=== PATIENT | male | born 1955 | race Two or more races ===

== ENCOUNTER 2025-07-04 03:36 | Inpatient (IN) | payer MEDICARE, MEDICAID, SELFPAY ==
[2025-07-04] VITALS (9 sets, daily range): BP systolic 97–133; BP diastolic 63–84; PULSE 52–64; RESP 15–95; TEMP 36.1–37.1; O2SAT 91–99; BMI 33.1
--- NOTE | 2025-07-04 03:58 | XR_ITS ---
Examination: CT abdomen and pelvis without contrast. Coronal 3-D reconstructions. Sagittal 2-D reconstructions. Date and time of exam:July 04, 2025, 0438 hours INDICATIONS: Abdominal pain and vomiting onset today. CTDI: vol (mGy): 8.09. DLP: (mGycm): 516. Technique: Axial images of the abdomen have been obtained, 3 mm slice thickness Intravenous contrast material has not been administered. Low dose protocols were performed. One or more of the following dose reduction techniques were used; automated exposure control, adjustment of the mA and/or KV according to patient size, use of iterative reconstruction technique. Findings: No focal liver or splenic lesions No gallstones No pancreatic or adrenal mass. No renal or ureteral calculi, no hydronephrosis No pericecal inflammatory change Multiple fluid distended small bowel loops ileal level No hernia defect Trace free fluid in the pelvis Bladder intact. No significant prostatomegaly Chronic compression L4 IMPRESSION: Small bowel obstruction, consider a Gastrografin small bowel series follow-up
--- NOTE | 2025-07-04 03:59 | PD.EDRME ---
Rapid Medical Screening Exam RME Arrival date/time: 07/04/25 03:36 This is a case of 69-year-old male who came into the emergency room due to generalized abdominal pain associated with nausea vomiting worsening of the symptoms this patient decided to sought consult here in the emergency room Chief Complaint: Abdominal Pain Time Seen by Provider: 07/04/25 03:53 Vital signs: Vital Signs Temperature 98.7 F 07/04/25 03:51 Pulse Rate 64 07/04/25 03:51 Respiratory Rate 16 07/04/25 03:51 Blood Pressure 116/73 07/04/25 03:51 Pulse Oximetry (%) 96 07/04/25 03:51 Oxygen Delivery Method Room Air 07/04/25 03:51
[2025-07-04 04:42] LABS: Collection Type, Urine Clean Catch
[2025-07-04 04:47] LABS: Bacteria,Urine Rare; Bilirubin,Urine Negative (Negative); Blood,Urine Negative (Negative); Clarity,Urine Clear (Clear/Hazy); Color,Urine Yellow (Lt Yel-Yel); Glucose, Urine Negative (Negative); Ketones,Urine Negative (Negative); Leukocyte Esterase,Urine Negative (Negative); Nitrite,Urine Negative (Negative); PH,Urine 6.5 (5.0-7.0); Protein,Urine 1+ (Neg - Trace); RBC,Urine 4 /hpf (0-3); Specific Gravity,Urine 1.034 (1.001-1.035); Squamous Epithelial Cell,Urine 1 /hpf (0-5); Urobilinogen,Urine 2.0 mg/dL (0.0-1.0); WBC,Urine 3 /hpf (0-5)
[2025-07-04 05:06] LABS: Basophils # (Auto) 0.1 Thou/mm3 (0.0-0.2); Basophils % (Auto) 0 % (0-2.5); Eosinophils # (Auto) 0.0 Thou/mm3 (0.0-0.5); Eosinophils % (Auto) 0 % (0-10); Hematocrit 40.2 % (41.0-53.0); Hemoglobin 14.4 g/dL (13.5-16.0); Immature Granulocytes Auto 0.04 Thou/mm3 (0.00-0.00); Lymphocytes # (Auto) 1.2 Thou/mm3 (1.0-4.8); Lymphocytes % (Auto) 11 % (10-50); Mean Corpuscular HGB Conc 35.8 g/dl (31.0-37.0); Mean Corpuscular Hemoglobin 39.5 pg (25.0-35.0); Mean Corpuscular Volume 110 fL (80-100); Monocytes # (Auto) 0.4 Thou/mm3 (0.0-0.8); Monocytes % (Auto) 4 % (0-12); Neutrophils # (Auto) 9.4 Thou/mm3 (1.8-7.7); Neutrophils % (Auto) 85 % (37-80); Nucleated Red Blood Cell # 0.00 Thou/mm3 (0.00-0.00); Nucleated Red Blood Cell % 0 /100 WBC (0); Platelet Count 268 Thou/mm3 (140-440); RDW Standard Deviation 53.1 fL (35.1-43.9); Red Blood Count 3.65 Miln/mm3 (4.50-5.90); White Blood Count 11.2 Thou/mm3 (3.8-10.6)
[2025-07-04 05:23] LABS: Path Review Blood Smear Sent to Pathologist
[2025-07-04 05:29] LABS: Alanine Aminotransferase 14 U/L (10-49); Albumin, Serum 4.6 gm/dL (3.4-4.8); Albumin/Globulin Ratio 1.7 (1.2-2.2); Alkaline Phosphatase 64 U/L (46-116); Anion Gap 10 (7-16); Aspartate Amino Transferase 25 U/L (0-34); BUN/Creatinine Ratio 19 Ratio (12-20); Bilirubin,Total 1.9 mg/dL (0.3-1.2); Blood Urea Nitrogen 13 mg/dL (9-23); Calcium 9.9 mg/dL (8.3-10.6); Calcium (Corrected) 9.9 mg/dL (8.5-10.1); Carbon Dioxide 26.8 mMol/L (20.0-31.0); Chloride 102 mMol/L (98-107); Creatinine (Component) 0.7 mg/dL (0.6-1.3); Estimated Creatinine Clearance 97.2 mL/min (>60); Globulin 2.7 gm/dL (2.3-3.5); Glucose 130 mg/dL (74-106); Lipase 32 U/L (12-53); Osmolality,Calculated 279 (275-295); Potassium 4.5 mMol/L (3.4-5.1); Sodium 139 mMol/L (136-145); Total Protein 7.3 gm/dL (5.7-8.2); eGFR > 60 See Note
--- NOTE | 2025-07-04 05:45 | PRELIM_ITS ---
CT scan of the abdomen and pelvis without intravenous contrast (axial sections with sagittal and coronal reformats) July 04, 2025 at 0438 hours Clinical History: Abdominal pain. Comparison: No prior study is available for comparison. Findings: The lung bases are clear. Subcentimeter hepatic cysts. Gallbladder, spleen, pancreas, adrenal glands and kidneys are unremarkable. The appendix is normal, best seen on (image 159). The urinary bladder is normal. Small ascites. Fluid levels are present and mildly distended jejunum and ileum. Mild mesenteric edema. No bowel caliber transition point is identified, although the proximal jejunum and distal ileum are relatively decompressed. No free intraperitoneal air. The abdominal wall is unremarkable. Chronic L4 compression fracture. No acute osseous process. Impression: Suspicious for partial mid ileal obstruction. Report Electronically Signed By: Chi Avina 07/04/2025 5:44:53 AM [EST]
--- NOTE | 2025-07-04 07:36 | PD.EDABDPN ---
ED Abdominal Pain RME/HPI General Chief Complaint: Abdominal Pain Stated complaint: ABD PAIN AND VOMITING X 1DAY Time seen by provider: 07/04/25 03:53 Arrival date/time: 07/04/25 03:36 Limitations: no limitations RME / HPI RME / HPI narrative: 07/04/25 03:36 This is a case of 69-year-old male who came into the emergency room due to generalized abdominal pain associated with nausea vomiting worsening of the symptoms this patient decided to sought consult here in the emergency room DR. JASMYNE ALMANZA ED EVALUATION 69 year old male presents to the ED for evaluation of abdominal pain beginning at 8PM last night and persistent through the night. Described as feeling distended that is worse to upper abdomen, rating as moderate. Accompanied by nausea and vomiting. Patient states he has history of gastritis with intermittent episodes of similar pain; in the past was prescribed Omeprazole with improvement. Denies taking any medications at home. No other associated symptoms reported. Denies fevers, chills, chest pain, shortness of breath, or vomiting. Last bowel movement was at 6PM yesterday and normal for him. Related Data Allergies Allergy/AdvReac Type Severity Reaction Status Date / Time No Known Allergies Allergy Verified 06/23/18 19:55 Review of Systems Review of Systems Systems Reviewed: All systems reviewed, normal except as documented Past Medical History Past Medical History CARDIAC: Negative Cardiac Disorders GENITOURINARY: Negative Renal Disease ENDOCRINE: Negative Endocrine Disorders OTHER HISTORY: Negative Blood Transfusions Family History FAMILY HISTORY: Negative Family Respiratory Disorders, Family Cardiac Disorders or Family Gastrointestinal Problems Social History SMOKING STATUS: Never smoker SECOND HAND EXPOSURE: No SUBSTANCE USE: does not use ED Exam General Limitations: Present no limitations General appearance: Present alert and in no apparent distress Head Head exam: Present atraumatic and normocephalic Eye Eye exam: Present normal appearance, PERRL and EOMI ENT ENT exam: Present normal exam, normal oropharynx and mucous membranes moist Neck Neck exam: Present normal inspection, full ROM and trachea midline Chest Chest inspection: Present normal inspection and symmetric chest wall rise Respiratory Respiratory exam: Present normal lung sounds bilaterally Cardiovascular Cardiovascular exam: Present regular rate, normal rhythm and normal heart sounds Abdominal Exam Abdominal exam: Present soft, tenderness (mild to moderate generalized tenderness to palpation, without rebound or guarding) and normal bowel sounds Extremities Exam Extremities exam: Present normal inspection and full ROM Back Exam Back exam: Present normal inspection and full ROM Neurological Exam Neurological exam: Present alert, oriented X3 and CN II-XII intact Psychiatric Psychiatric exam: Present normal affect and normal mood Skin Skin exam: Present warm, dry, intact and normal color Course Quality Measures none Orders Category Date Time Status CT abdomen pelvis wo con Stat Exams 07/04/25 03:58 Completed CBC Stat Lab 07/04/25 04:50 Completed Comprehensive Metabolic Panel Stat Lab 07/04/25 04:50 Completed Lipase Stat Lab 07/04/25 04:50 [address] Review Blood Smear Stat Lab 07/04/25 04:50 Completed Urinalysis Stat Lab 07/04/25 04:18 Completed Vital Signs Vital signs: Vital Signs Temperature 98.7 F 07/04/25 03:51 Pulse Rate 64 07/04/25 03:51 Respiratory Rate 16 07/04/25 03:51 Blood Pressure 116/73 07/04/25 03:51 Pulse Oximetry (%) 96 07/04/25 03:51 Oxygen Delivery Method Room Air 07/04/25 03:51 Pulse ox is 96% on room air which is adequate. Abdominal Pain MDM MDM Narrative MDM Narrative:: Teresa Colvin am scribing for and in the presence of Dr. Phillips. 11:44 69 year old male presents to the ED for evaluation of abdominal pain beginning at 8PM last night and persistent through the night. Described as feeling distended that is worse to upper abdomen, rating as moderate. Accompanied by nausea and vomiting. Patient states he has history of gastritis with intermittent episodes of similar pain; in the past was prescribed Omeprazole with improvement. Denies taking any medications at home. No other associated symptoms reported. Denies fevers, chills, chest pain, shortness of breath, or vomiting. Last bowel movement was at 6PM yesterday and normal for him. Patient's vital signs were stable and normal throughout. His exam was unremarkable for moderate abdominal tenderness to palpation without rebound or guarding. Patient does not have a surgical abdomen. The remainder of his exam is normal. Patient's blood work is remarkable for mild leukocytosis, but otherwise unremarkable. His CT showed a small bowel obstruction. I called Dr. Mckeon (general surgeon on-call for the emergency department) and discussed the case with him in detail. I then called the resident for Dr. Bradshaw I discussed the case with him in detail. Patient to be admitted Patient data External records reviewed:: [facility] previous records (I reviewed admission from 06/23/2018 through 06/27/2018) Clinical information provided by:: patient Social determinants that could affect healthcare access:: none Patient has the following chronic illnesses:: Gastritis How is presenting disease/condition affected by chronic disease/condition?: exacerbated by Evaluation data The following diagnostics were reviewed and interpreted by me:: lab results and radiology exam(s) Lab and/or radiology exams considered but not ordered:: None Interpretation Summary: Ordering Physician: Duke Goetz Date of Service: 07/04/25 Procedure(s): CT abdomen pelvis wo con Accession Number(s): [id number] cc: Harshil Sutton MD; NO PRIMARY/FAMILY,PHYSICIAN; Duke Goetz~ Examination: CT abdomen and pelvis without contrast. Coronal 3-D reconstructions. Sagittal 2-D reconstructions. Date and time of exam:July 04, 2025, 0438 hours INDICATIONS: Abdominal pain and vomiting onset today. CTDI: vol (mGy): 8.09. DLP: (mGycm): 516. Technique: Axial images of the abdomen have been obtained, 3 mm slice thickness Intravenous contrast material has not been administered. Low dose protocols were performed. One or more of the following dose reduction techniques were used; automated exposure control, adjustment of the mA and/or KV according to patient size, use of iterative reconstruction technique. Findings: No focal liver or splenic lesions No gallstones No pancreatic or adrenal mass. No renal or ureteral calculi, no hydronephrosis No pericecal inflammatory change Multiple fluid distended small bowel loops ileal level No hernia defect Trace free fluid in the pelvis Bladder intact. No significant prostatomegaly Chronic compression L4 IMPRESSION: Small bowel obstruction, consider a Gastrografin small bowel series follow-up Dictated By: Harshil Sutton MD Signed By: <Electronically signed by Harshil Sutton MD in OV> 07/04/25 0655 Medications / Prescriptions Medications or Prescriptions considered but not ordered:: None Medication administrations:: Medication Administration History Acetaminophen (Acetaminophen 325 Mg Tablet) 650 mg PO Q6H PRN PRN Reason: Fever >101.5 Stop: 08/03/25 10:11 Enoxaparin Sodium (Enoxaparin Sod Inj 40 Mg/0.4 Ml Syringe) 40 mg SC QDAY [facility] Stop: 07/19/25 08:59 Lactated Ringer's (Lactated Ringers) 1,000 mls @ 75 mls/hr IV .[id number] [facility] Stop: 08/03/25 10:14 Last Admin: 07/04/25 10:41 Dose: 75 mls/hr Documented By: VL Pantoprazole Sodium (Pantoprazole Inj 40 Mg Vial) 40 mg IVP QDAY [facility] Stop: 08/03/25 10:14 Last Admin: 07/04/25 10:41 Dose: 40 mg Documented By: VL See above Consultations Consultation(s) initiated? (list below): Yes Consultation #1 (Physician, Specialty, Details): I spoke with general surgeon Dr. Mckeon. Advised getting a small bowel series and if positive to have hospitalist consult with him. Time: 07:43 Consultation #2 (Physician, Specialty, Details): I spoke with resident working with Dr. Bradshaw. Discussed patients PMHx, HPI, ED course, exam findings, labs, and radiology results. The hospitalist agree to accept the patient for admission. Time: 07:44 Diagnosis Differential diagnosis abdominal pain: abdominal pain, calculus of kidney, constipation, pancreatitis and small bowel obstruction Most likely diagnosis given after review of the tests above:: Small bowel obstruction Admission Indicated Admission indicated?: indicated Admission Request Was there a request for admission?: Yes Admission Attestation Admission request attestation: Discussed case with [] from Hospitalist service regarding admission. Discussed patients ED course, exam findings, labs, and radiology results. The Hospitalist [agrees,declines] to accept the patient for admission. Disposition Plan Disposition Plan: Admit Discharge Plan Plan Patient Disposition: Admit Acute Care w/in Hospital Problem List Clinical Impression: Small bowel obstruction
--- NOTE | 2025-07-04 10:12 | XR_ITS ---
Examination: Small bowel series AP supine abdomen 5 views Date and time: July 04, 2025, 1442 hours INDICATIONS: CT abdomen and pelvis study today small bowel obstruction pattern, abdominal pain and distention with vomiting today TECHNIQUE AND FINDINGS: Patient received 120 cc Gastrografin AP supine abdomen films obtained, immediate, 1 minute, 30 minutes, 1 hour and 2 hours Mildly distended contrast opacified small bowel loops noted, however contrast appears in the right colon on the two-hour film IMPRESSION: Recommend one additional follow-up abdomen film at 8:00 PM to confirm no small bowel obstruction
[2025-07-04] MEDS: RINGERS LACTATED 1000 ML 1,000 ML 75 ML IV (10:41)
--- NOTE | 2025-07-04 10:58 | PC.CC ---
Patient is a 69 year-old male who presents to the hospital for SBO. SENIOR SOFTWARE DEVELOPMENT MANAGERKarime made [id number] contact with patient introduced self, role, and reason for visit. Patient appeared alert and oriented to self, location, and situation. SENIOR SOFTWARE DEVELOPMENT MANAGER, discussed limits of confidentiality. At bedside was patient's , Kylie Candelario whom patient provided verbal consent to remain in the room during assessment. Patient made appropriate eye contact and engaged in initial assessment. Patient confirmed information on demographics. Per patient, in the event that he is unable to make his own medical decision his medical decision maker is his daughter, Katie Buenrostro . At home patient is able to ambulate independently and complete his own ADLs. Patient does not require any DME prior to this admission. Patient reports he does not have a primary provider or clinic. Upon discharge patient plans to return back home. outpatient services director to follow up with any discharge needs.
--- NOTE | 2025-07-04 12:39 | PC.NURSE ---
REPORT GIVEN TO TRACY SMALLS. PATIENT WILL BE TRANSPORTED VIA [facility].
--- NOTE | 2025-07-04 13:19 | ESHP_ITS ---
<Statement entered by Deniz Bhatia MD - 07/04/25 14:47> Patient was seen and examined at bedside. He is a known case of any medical condition except recurrent episodes of GERD on omeprazole. Presented today due to abdominal pain located to the epigastric area associated with nausea and vomiting. The vomit was bilious in content however there was no bleed. Reported that his last bowel movement was 5 in the morning however since then has not had any bowel movement or pass gas. CT scan of the abdomen showed possible SBO. For that reason patient was admitted for GI following series and monitoring. NG to low intermittent suction was placed and consultation to the general surgery will be placed after the GI follow-up through series. - Patient's plan and care discussed with my attending, Dr. Leeann Bhatia MD Internal Medicine PGY-3 Documentation for date of: 07/04/25 HPI History of Present Illness History of present illness: 69 year old male w/ PMHx of GERD, gastritis, and occasional constipation presented to the ED with new onset worsening nausea and vomiting. He is admitted for SBO work up. Upon initial evaluation with a telephone communication analyst and patients present, patient reported his last BM at 5pm yesterday(07/03) then at 8pm he had intense nausea and vomiting. His vomitus was green and did not contain any blood or signs of bleeding. He denies SOB, chest pain, fevers, chills night sweats. For clarity, there is a nursing note that reports 5am diarrhea in the ED. This was investigated, no nursing staff recollects this in their sign out, patient also denies clearly and confidently that his last BM of any kind was 5pm before the admission. In the ED, patient's vital signs were stable and normal throughout. His exam was unremarkable for moderate abdominal tenderness to palpation without rebound or guarding. Patient does not have a surgical abdomen. The remainder of his exam is normal. Patient's blood work is remarkable for mild leukocytosis, but otherwise unremarkable. His CT showed a small bowel obstruction. Dr. mckeon (surgery) was consulted and recommended small bowel series. Code: Full Medical Hx: GERD, gastritis, constipation Medications: Omeprazole (finished his prescription) Allergies: NKDA Surgical history: None Fhx: Noncontributory Soc Hx: Lives at home with his in [place], works in the [place]. Denies alcohol use for the last 20 years. Denies history of smoking and recreational drug use Patient admitted for SBO work up All 12 systems reviewed and were negative except otherwise stated in HPI. Exam Vital Signs Temp Pulse Resp BP Pulse Ox O2 Del Method 98.1 F 61 16 105/78 95 Room Air 07/04/25 07:28 07/04/25 13:18 07/04/25 13:18 07/04/25 09:37 07/04/25 07:28 07/04/25 09:37 Narrative Exam GENERAL APPEARANCE: AOx3. Apparent gastric discomfort, activity normal for age, well developed/ well nourished, no cyanosis, pallor, or diaphoresis. HEENT: Normocephalic atraumatic, no facial trauma, neck is supple. Lids/conjunctiva normal. Mucous membranes moist, nares normal, lips/teeth normal uvula midline without oral pharyngeal erythema, exudate or swelling TMs normal bilaterally. No lymphangitis/lymphedema. CARDIAC: Bradycardic regular rhythm, S1 and S2 heard. No murmurs, rubs, or gallops noted RESPIRATORY: respiratory effort normal, speaks in full sentences, no tripod position, no accessory muscle use. Lungs clear to auscultation without rhonchi, wheezes, rales ABDOMINAL: Hypoactive bowel sounds, no high pitched sounds heard. Soft mildly distended diffusely TTP, RUQ most tender. no signs of acute abdomen. No evidence of fluid wave. No pulsatile masses on exam, rebound tenderness, Paige sign or pain over Mcburney's point. MUSCLES/EXTREMITIES: No abnormal range of motion, no swelling. DERM: Warm, pink and dry. No rashes, dermatoses, petechiae or lesions. NEUROLOGICAL: Speech is clear and appropriate. Normal level of consciousness. Gait and coordination are normal. 5/5 strength in all extremities. PSYCH: Normal mood and affect. Judgement/competence is appropriate Results: Labs 07/04/25 04:50 07/04/25 04:50 Labs: Short CBC 07/04/25 Range/Units 04:50 WBC 11.2 H (3.8-10.6) Thou/mm3 Hgb 14.4 (13.5-16.0) g/dL Hct 40.2 L (41.0-53.0) % Plt Count 268 (140-440) Thou/mm3 BMP 07/04/25 04:50 Sodium 139 Potassium 4.5 Chloride 102 Carbon Dioxide 26.8 BUN 13 Creatinine 0.7 Glucose 130 H Calcium 9.9 Liver Function 07/04/25 Range/Units 04:50 Total Bilirubin 1.9 H (0.3-1.2) mg/dL AST 25 (0-34) U/L ALT 14 (10-49) U/L Alkaline Phosphatase 64 (46-116) U/L Albumin 4.6 (3.4-4.8) gm/dL Urine 07/04/25 Range/Units 04:18 Urine Color Yellow (Lt Yel-Yel) Urine Clarity Clear (Clear/Hazy) Urine pH 6.5 (5.0-7.0) Ur Specific Clements 1.034 (1.001-1.035) Urine Protein 1+ A (Neg - Trace) Urine Glucose (UA) Negative (Negative) Quality Measures Quality Measures none Advance care planning discussed with:: patient Medications Home Medications and Allergies Home Medications ?Medication ?Instructions ?Recorded ?Confirmed ?Type No Known Home Medications 07/04/2506/12 History Allergies Allergy/AdvReac Type Severity Reaction Status Date / Time No Known Allergies Allergy Verified 06/23/18 19:55 Visit Medications Acetaminophen (Acetaminophen 325 Mg Tablet) 650 mg PO Q6H PRN PRN Reason: Fever >101.5 Stop: 08/03/25 10:11 Enoxaparin Sodium (Enoxaparin Sod Inj 40 Mg/0.4 Ml Syringe) 40 mg SC [facility]DAY [facility] Stop: 07/19/25 08:59 Lactated Ringer's (Lactated Ringers) 1,000 mls @ 75 mls/hr IV .[id number] [facility] Stop: 08/03/25 10:14 Last Admin: 07/04/25 10:41 Dose: 75 mls/hr Pantoprazole Sodium (Pantoprazole Inj 40 Mg Vial) 40 mg IVP QDAY [facility] Stop: 08/03/25 10:14 Last Admin: 07/04/25 10:41 Dose: 40 mg Assessment & Plan Plan 69 year old male w/ PMHx of GERD, gastritis, and occasional constipation presented to the ED with new onset worsening nausea and vomiting. He is admitted for SBO work up. #SBO Patient has not had a BM since 5pm yesterday (07/04). He then had intense NV 3 hours later with bilious vomiting without signs of blood. He was in gastric discomfort on exam with diffuse tenderness without signs of acute abdomen and hypoactive bowel sounds. CTAP showed SBO. Plan: -Surgery (Dr. Mckeon) consulted -XR small bowel single contrast:____ -NGT intermittent suction -LR 1L IV 75mL/hr -Zofran 4mg IVP Q6H PRN -Protonix 40mg IVP QD -NPO #Hyperbilirubinemia T. Bili: 1.9. LFTs w/nl. Long history of elevated T.Bili. Diffuse abdominal tenderness, Paige sign negative. No signs of jaundice or scleral icterus. Plan: -Continue to monitor for worsening signs -FUP labs #Hematuria +4 RBCs seen on UA only other finding is +1 protein. Patient does not report any discomfort or painful urination. No stones or tumors seen on CT scan. Most likely incidental finding. Plan: -Repeat UA on DC -Smear sent to path:____ -FUP out patient #Macrocytosis Elevated MCV:110 seen on prior labs. Normal hemoglobin. Most likely incidental finding, patient denies history of malnutrition or alcohol in the last 20 years. Plan: -FUP B12 levels:____ Health Maintenance: DVT prophylaxis: Lovenox Diet: NPO Catalan: None Lines: PIV Supplemental O2: NC CODE STATUS: Full Disposition: Admitted for overnight observation of SBO Patient seen and reviewed with attending Dr. Bradshaw and supervising resident Dr. Niru Bhatia. Note written by Bernardo Foster MD PGY-1 Attending Provider Attestation/Addendum I have discussed and was present for the essential components of the history, physical examination, diagnosis, and treatment plan with the resident. I agree with the patient's care as documented by the resident and amended herein by me. Emanuel Bradshaw DO. Although this document has been carefully reviewed, there may still be some phonetic and other typographical errors. These errors are purely grammatical due to imperfections in the software program and should not be construed in any way to compromise the substance of the patient's medical care during this visit. Patient seen and evaluated this AM. In short, 61-year-old male with significant past medical history of pancytopenia, gastritis and vitamin B12 deficiency, presented for abdominal pain and subsequently admitted for small bowel obstruction. Significant in the ED ER WBC 11.2 and T. bili 1.9. BMP unremarkable. CT abdomen pelvis demonstrating SBO, surgery was consulted in the ED. At this time will admit to [facility], a small bowel series has been ordered, Accu-Cheks every 6 hours also ordered and will begin fluids as necessary. Will hold off on NG tube for now until results of small bowel series result. Will continue to monitor closely while he's here
--- NOTE | 2025-07-04 16:00 | PC.NURSE ---
Spoke with Dr. Castro d/t patient having pain 05/20. This nurse requested pain medication. Dr stated that he will add a Tylenol order and he will come see the patient.
[2025-07-04] MEDS: ACETAMINOPHEN IVPB 1,000 MG/100 ML VIAL 250 MG IV (16:13)
--- NOTE | 2025-07-04 18:03 | PC.NURSE ---
Radiology said they gave the pt gastrograffin so I waited to insert the NG tube, Radiology says they are done now so I explained to the pt using [facility] about inserting the NG tube, pt says he has had cautery in his nose a long time ago, he says he will throw up with the NG tube insert, I explain that sometimes that can happen, pt does not want to attempt the NG tube insert
--- NOTE | 2025-07-04 18:07 | PC.NURSE ---
I notified Dr. Foster re: pt refusing NG tube insert
--- NOTE | 2025-07-04 19:01 | PC.NURSE ---
Report received, pt needs NGT insertion, MD ordered for valium prior to insertion.
--- NOTE | 2025-07-04 20:00 | XR_ITS ---
Examination: Abdomen AP single view Technique: AP portable supine abdomen, single view Exam date and time: July 04, 20252007 hours INDICATIONS: Abdominal pain and distention this week vomiting, small bowel obstruction pattern on CT abdomen pelvis study this morning, 5 hour delayed film for small bowel series FINDINGS: Contrast present throughout the colon IMPRESSION: Negative for small bowel obstruction
--- NOTE | 2025-07-04 20:20 | PC.NURSE ---
Radiology in to xray, pending results, will contact MD regarding results prior to NGT insertion. Pt currently had loose bowel movement, abd soft no c/o n/v or pain
[2025-07-05] VITALS: BP 91/61; PULSE 52; RESP 16; TEMP 36.1; O2SAT 98
[2025-07-05] MEDS: RINGERS LACTATED 1000 ML 1,000 ML 75 ML IV (00:44)
[2025-07-05 04:00] VITALS: BP 85/67; PULSE 50; RESP 16; TEMP 36.1; O2SAT 97
[2025-07-05 06:12] LABS: Basophils # (Auto) 0.0 Thou/mm3 (0.0-0.2); Basophils % (Auto) 1 % (0-2.5); Eosinophils # (Auto) 0.2 Thou/mm3 (0.0-0.5); Eosinophils % (Auto) 3 % (0-10); Hematocrit 36.1 % (41.0-53.0); Hemoglobin 12.8 g/dL (13.5-16.0); Immature Granulocytes Auto 0.01 Thou/mm3 (0.00-0.00); Lymphocytes # (Auto) 2.0 Thou/mm3 (1.0-4.8); Lymphocytes % (Auto) 31 % (10-50); Mean Corpuscular HGB Conc 35.5 g/dl (31.0-37.0); Mean Corpuscular Hemoglobin 39.6 pg (25.0-35.0); Mean Corpuscular Volume 112 fL (80-100); Monocytes # (Auto) 0.5 Thou/mm3 (0.0-0.8); Monocytes % (Auto) 7 % (0-12); Neutrophils # (Auto) 3.8 Thou/mm3 (1.8-7.7); Neutrophils % (Auto) 58 % (37-80); Nucleated Red Blood Cell # 0.00 Thou/mm3 (0.00-0.00); Nucleated Red Blood Cell % 0 /100 WBC (0); Platelet Count 221 Thou/mm3 (140-440); RDW Standard Deviation 51.9 fL (35.1-43.9); Red Blood Count 3.23 Miln/mm3 (4.50-5.90); White Blood Count 6.5 Thou/mm3 (3.8-10.6)
[2025-07-05 06:26] LABS: INR 1.1 (0.9-1.3); Partial Thromboplastin Time 30.1 Seconds (22.0-36.0); Prothrombin Time 12.1 Seconds (9.0-12.2)
[2025-07-05 06:28] VITALS: BP 118/64; PULSE 54
[2025-07-05 06:33] LABS: Vitamin B12 55 pg/mL (211-911)
[2025-07-05 06:45] LABS: Alanine Aminotransferase 10 U/L (10-49); Albumin, Serum 3.6 gm/dL (3.4-4.8); Albumin/Globulin Ratio 1.2 (1.2-2.2); Alkaline Phosphatase 60 U/L (46-116); Anion Gap 7 (7-16); Aspartate Amino Transferase 16 U/L (0-34); BUN/Creatinine Ratio 11 Ratio (12-20); Bilirubin,Total 1.9 mg/dL (0.3-1.2); Blood Urea Nitrogen 9 mg/dL (9-23); Calcium 8.5 mg/dL (8.3-10.6); Calcium (Corrected) 8.8 mg/dL (8.5-10.1); Carbon Dioxide 29.8 mMol/L (20.0-31.0); Chloride 106 mMol/L (98-107); Creatinine (Component) 0.8 mg/dL (0.6-1.3); Estimated Creatinine Clearance 84.3 mL/min (>60); Globulin 3.1 gm/dL (2.3-3.5); Glucose 92 mg/dL (74-106); Magnesium 2.3 mg/dL (1.6-2.6); Osmolality,Calculated 283 (275-295); Phosphorous 3.6 mg/dL (2.4-5.1); Potassium 4.1 mMol/L (3.4-5.1); Sodium 143 mMol/L (136-145); Total Protein 6.7 gm/dL (5.7-8.2); eGFR > 60 See Note
[2025-07-05 08:00] VITALS: BP 136/71; PULSE 50; RESP 19; TEMP 36.3; O2SAT 98
[2025-07-05] MEDS: ENOXAPARIN SOD INJ 40 MG/0.4 ML SYRINGE SC (08:47)
--- NOTE | 2025-07-05 10:42 | PC.NURSE ---
per Dr. Marrufo hold discharge until results of UA.
[2025-07-05 12:00] VITALS: BP 127/72; PULSE 54; RESP 19; TEMP 36.1; O2SAT 97
[2025-07-05 12:45] LABS: Collection Type, Urine Clean Catch
[2025-07-05 13:08] LABS: Bilirubin,Urine Negative (Negative); Blood,Urine Negative (Negative); Clarity,Urine Clear (Clear/Hazy); Color,Urine Yellow (Lt Yel-Yel); Glucose, Urine Negative (Negative); Ketones,Urine Negative (Negative); Leukocyte Esterase,Urine Negative (Negative); Nitrite,Urine Negative (Negative); PH,Urine 6.5 (5.0-7.0); Protein,Urine Negative (Neg - Trace); RBC,Urine 1 /hpf (0-3); Specific Gravity,Urine 1.018 (1.001-1.035); Squamous Epithelial Cell,Urine < 1 /hpf (0-5); Urobilinogen,Urine Negative mg/dL (0.0-1.0); WBC,Urine 1 /hpf (0-5)
--- NOTE | 2025-07-05 15:51 | PC.SS ---
Patient to d/c home today
--- NOTE | 2025-07-05 16:26 | ESDS_ITS ---
Planned Discharge Date 07/05/25 DS: Providers Provider Date of admission: 07/04/25 07:51 Primary care physician: Physician No Primary/Family Admitting Provider: Juan Carlos Bradshaw DO Attending Provider on Admission: Juan Carlos Bradshaw DO Attending Provider on DC: Juan Carlos Bradshaw DO Discharging Provider: Juan Carlos Bradshaw DO DS: Diagnosis Problem List Completed Was Problem List Reviewed/Reconciled?: Yes Hospital Course Hospital Course Hospital course: 69 year old male w/ PMHx of GERD, gastritis, and occasional constipation presented to the ED with new onset worsening nausea and vomiting. He is admitted for SBO work up. In the ED, patient's vital signs were stable and normal throughout. His exam was remarkable for moderate abdominal tenderness to palpation without rebound or guarding. Patient does not have a surgical abdo men. The remainder of his exam is normal. Patient's blood work is remarkable for mild leukocytosis, but otherwise unremarkable. His CT showed a small bowel obstruction. Dr. whitt (surgery) was consulted and recommended small bowel series. Patient underwent small bowel series with NGT intermittent suctioning. Upon completion of series patient passed BM xray showed no SBO. Patient safe to discharge with large amounts of flatus. Discharge Instructions: Follow-up with your PCP within 1 week Take protonix as prescribed, we have prescribed it to you We have prescribed you B12, take as prescribed Take your medicines as prescribed Return to ED if your symptoms worsen or return #SBO #Hyperbilirubinemia #Hematuria #Macrocytosis Patient's plan and care discussed with my attending, Dr. Bradshaw, and supervising residents Deniz Bhatia MD, and MD Bernardo Jones MD Internal Medicine PGY-1 Time Spent with Patient Time attestation: Total time spent providing and/or coordinating discharge services: Time spent: Greater than 30 minutes Exam Vital Signs Temp Pulse Resp BP Pulse Ox O2 Del Method 97.0 F 54 L 19 127/72 97 Room Air 07/05/25 12:00 07/05/25 12:00 07/05/25 12:00 07/05/25 12:00 07/05/25 12:00 07/05/25 12:00 Narrative Exam GENERAL APPEARANCE: AOx3. NAD, activity normal for age, well developed/ well nourished, no cyanosis, pallor, or diaphoresis. HEENT: Normocephalic atraumatic, no facial trauma, neck is supple. Lids/conjunctiva normal. Mucous membranes moist, nares normal, lips/teeth normal uvula midline without oral pharyngeal erythema, exudate or swelling TMs normal bilaterally. No lymphangitis/lymphedema. CARDIAC: RRR, S1 and S2 heard. No murmurs, rubs, or gallops noted RESPIRATORY: respiratory effort normal, speaks in full sentences, no tripod position, no accessory muscle use. Lungs clear to auscultation without rhonchi, wheezes, rales ABDOMINAL: NBS. NTTP Nondistended. No evidence of fluid wave. No pulsatile masses on exam, rebound tenderness, Paige sign or pain over Mcburney's point. MUSCLES/EXTREMITIES: No abnormal range of motion, no swelling. DERM: Warm, pink and dry. No rashes, dermatoses, petechiae or lesions. NEUROLOGICAL: Speech is clear and appropriate. Normal level of consciousness. Gait and coordination are normal. 5/5 strength in all extremities. PSYCH: Normal mood and affect. Judgement/competence is appropriate Discharge Plan Plan Patient Disposition: HOME (Self Care) Patient condition on transfer: Stable Care Plan Goals: Discharge instructions Follow-up with your PCP within 1 week Take protonix as prescribed, we have prescribed it to you We have prescribed you B12, take as prescribed Take your medicines as prescribed Return to ED if your symptoms worsen or return Prescriptions/Referrals Prescriptions/Med Rec: New pantoprazole [Protonix] 40 mg tablet,delayed release (DR/EC) 40 mg PO QDAY 30 Days Qty: 30 0RF Rx Instructions: Take one tablet by mouth before breakfast mecobalamin (vitamin B12) 1,000 mcg tablet,chewable 1,000 mcg PO QDAY 30 Days Qty: 30 0RF Rx Instructions: Take one tablet by mouth every day Referrals: No Primary/Family,Physician [Primary Care Provider] - Patient/Caregiver Discharge Instructions Discharge Activity: activity as tolerated Education Materials: Small Bowel Obstruction, ED Constipation (Adult), ED Gastritis (Adult) Print Language: [place] Stand Alone Forms: [facility] Award Info., Patient Portal Info Letter Discharge Order Discharge Orders: Discharge (Routine); Ordered 07/05/25 Ordered By: Deniz Bhatia Quality Discharge Quality Measures VTE prophylaxis MD Attestestation MD Attestation I have discussed and was present for the essential components of the discharge history, physical examination, diagnosis, and discharge treatment plan with the resident. I agree with the patient's discharge care as documented by the resident and amended herein by me. Emanuel Bradshaw DO. The patient understood all discharge instructions, all questions were answered satisfactorily. The patient was instructed to return to the Emergency Department is symptoms worsened or persisted. Although this document has been carefully reviewed, there may still be some phonetic and other typographical errors. These errors are purely grammatical due to imperfections in the software program and should not be construed in any way to compromise the substance of the patient's medical care during this visit.
== END 2025-07-05 15:30 | disposition home or self-care (01) | DRG 390 ==
LOC: SERX 06:07 → SERHOLD 08:06 → S3SX 12:57
PROVIDERS: Nurse Practitioner Family; Student in an Organized Health Care Education/Training Program; Admitting Provider Student in an Organized Health Care Education/Training Program; Emergency Provider Emergency Medicine; Visit Provider Student in an Organized Health Care Education/Training Program
DX: K56.609 Unspecified intestinal obstruction, unspecified as to partial versus complete obstruction (principal); E53.8 Deficiency of other specified B group vitamins; K25.9 Gastric ulcer, unspecified as acute or chronic, without hemorrhage or perforation; E80.6 Other disorders of bilirubin metabolism; K21.9 Gastro-esophageal reflux disease without esophagitis; D72.829 Elevated white blood cell count, unspecified; R31.9 Hematuria, unspecified; D75.89 Other specified diseases of blood and blood-forming organs; Z60.3 Acculturation difficulty
CPT/HCPCS: 36415; 74018; 74176; 74250; 80053; 81001; 82607; 83690; 83735; 84100; 85025; 85610; 85730; 96361; 96374; 99284; A4649; J0131; J1650; J2470; J3420; J7120